=== PATIENT | male | born 1940 | race Caucasian/White ===

== ENCOUNTER 2023-08-18 15:32 | Outpatient (OUT) | payer MEDICARE, BC, SELFPAY ==
--- NOTE | 2023-08-18 15:40 | US_ITS ---
The [address] [address] Patient Name: STONE CLARK MRN: [id number] date: 1940 Sex: M Assigned Patient Location: US Current Patient Location: US Accession/Order Number: [id number] Exam Date: 08/18/2023 16:00 Report Date: 08/18/2023 19:25 At the request of: VICENTA NOLASCO Procedure: US venous doppler LE LT EXAM: US venous doppler LE LT HISTORY: M79.89 COMPARISON: None. TECHNIQUE: Left lower extremity Doppler interrogation performed FINDINGS: Soft tissue swelling is seen. There is no evidence of left lower extremity DVT. Multiple varicose veins are identified. US/US venous doppler LE LT IMPRESSION: No findings of left lower extremity DVT. Soft tissue swelling and varicose veins Electronically authenticated by: STONE OSCAR Date: 08/18/2023 19:25
== END 2023-08-18 15:33 | disposition home or self-care (01) ==
LOC: US 15:36
PROVIDERS: PCP Family Medicine; Visit Provider Family Medicine
DX: M79.89 Other specified soft tissue disorders (principal)
CPT/HCPCS: 93971

== ENCOUNTER 2025-05-12 11:55 | Outpatient (OUT) | payer MEDICARE, BC, SELFPAY ==
--- NOTE | 2025-05-12 | XR_ITS ---
The [address] [address] Patient Name: STONE CLARK MRN: [id number] date: 1940 Sex: M Assigned Patient Location: [facility] Current Patient Location: [facility] Accession/Order Number: [id number] Exam Date: 05/12/2025 12:44 Report Date: 05/12/2025 12:46 At the request of: VICENTA NOLASCO MD Procedure: XR lumbar spine 2-3V LUMBAR SPINE - 2 views COMPARISON: None CLINICAL DATA: Chronic low back pain with recent worsening. Numbness at the legs after sitting lumbar yesterday. AP and lateral views were obtained. There is osteopenia. No acute fractures are identified. There is minor retrolisthesis of L2 on L3 and L3 on L4. There is also minimal anterolisthesis of L4 and L5. There are no acute compression fractures. There is mild multilevel disc space narrowing. Small endplate spurs and lower lumbar facet hypertrophy are seen. There is mild sclerosis at the SI joints. There are partially imaged screws associated with hip prostheses. Left nephrolithiasis is suspected. There is atherosclerotic plaque at the aorta and iliac arteries. XR/XR lumbar spine 2-3V IMPRESSION: OSTEOPENIA AND DEGENERATIVE CHANGES. NO ACUTE BONY FINDINGS. Impression dictated by: Erendira Quinteros M.D. 05/12/2025 12:46 PM Dictation Location: [place] [address] Electronically authenticated by: [id number] Y Date: 05/12/2025 12:46
--- OUTSIDE RECORDS SUMMARY | 2025-05-12 12:00 | XMS_ITS | Encounter Summary ---
Author Organization [facility] Address [address] [facility] [place] [address] Care Team Providers Care Magnet Maker Name Role Phone Roxanna Jaime MD Primary Care Provider [phone] Roxanna Jaime MD Primary Care Provider [phone] Encounter Details Date Type Department Care Team (Late st Contact Info) Description 12/01/2024 Clinisync Result Encounter [facility] External Department Unsolicited Mike Sanchez DO [address] [place] [address] Social History Tobacco Use Types Packs/Day Years Used Date Smoking Tobacco: Former Cigarettes Passive Smoke Exposure: Past Smokeless Tobacco: Never Alcohol Use Standard Drinks/Week Comments Never 0 (1 standard drink = 0.6 oz pur e alcohol) caffiene 3-4/day coffee Sex and Gender Information Value Date Recorded Sex Assigned at Not on file Legal Sex Male 7:14 PM EDT Gender Identity Not on file Sexual Orientation Not on file documented as of this encounter Plan of Treatment Upcoming Encounters Date Type Department Care Team (Late st Contact Info) Description 06/12/2025 8:00 AM EDT Office Visit [facility] [address] [place] [facility] [phone] Mike Sanchez DO [address] [place] [address] documented as of this encounter Procedures Procedure Name Priority Date/Time Associated Diagnosis Comments VASC US LOWER EXTREMITY VENOUS DUPLEX LEFT 12/01/2024 2:24 PM EST documented in this encounter Results * Vascular US lower extremity venous duplex left (12/01/2024 2:24 PM EST) Anatomical Region Laterality Modality Lower Extremities Ultrasound 12/01/2024 2:24 PM EST Narrative 12/01/2024 2:56 PM EST Exam Date/Time: 12/01/2024 14:47 EST Reason for Exam: Z86.718 Report IMPRESSION: NO EVIDENCE OF VENOUS THROMBOSIS INVOLVING VISUALIZED DEEP VEINS OF THE LEFT LEG. LEFT LOWER EXTREMITY VENOUS SONOGRAPHY WITH COLOR FLOW AND DOPPLER. CLINICAL HISTORY: Z86.718 Comparison: 01/14/2023. COMMENT: On the left, the greater saphenous vein, common femoral vein, deep femoral vein, femoral vein, and popliteal vein demonstrate spontaneous phasic venous flow, with augmentation, competence, non-pulsatility, and compressibility every 2 cm. The left posterior tibial and peroneal veins of the deep venous system compress. The contralateral right common femoral vein demonstrates spontaneous phasic venous flow. Ordering Provider: Mike Sanchez FINAL REPORT Dictated: 12/01/2024 2:53 pm Ras Macario MD Signed (Electronic Signature): 12/01/2024 2:53 pm Signed by: Ras Macario MD Transcribed by: KALE Technologist: LAMONT Procedure Note Radiology, Radiologist, - 12/01/2024 Exam Date/Time: 12/01/2024 14:47 EST Reason for Exam: Z86.718 Report IMPRESSION: NO EVIDENCE OF VENOUS THROMBOSIS INVOLVING VISUALIZED DEEPVEINS OF THE LEFT LEG. LEFT LOWER EXTREMITY VENOUS SONOGRAPHY WITH COLOR FLOW AND DOPPLER. CLINICAL HISTORY: Z86.718 Comparison: 01/14/2023. COMMENT: On the left, the greater saphenous vein, common femoral vein,deep femoral vein, femoral vein, and popliteal vein demonstrate spontaneous phasicvenous flow, with augmentation, competence, non-pulsatility, and compressibility every2 cm. The left posterior tibial and peroneal veins of the deep venous systemcompress. The contralateral right common femoral vein demonstrates spontaneous phasicvenous flow. Ordering Provider: Mike Sanchez FINAL REPORT Dictated: 12/01/2024 2:53 pm Ras Macario MD Signed (Electronic Signature): 12/01/2024 2:53 pm Signed by: Ras Macario MD Transcribed by: KALE Technologist: LAMONT us Mike Sanchez DO IMG US PROCEDURES Final Result documented in this encounter Visit Diagnoses Not on filedocumented in this encounter Care Teams Magnet Maker Relationship Specialty Start Date End Date Roxanna Jaime MD PCP - General Family Medicine 08/05/23 03/12/25 Roxanna Jaime MD [address] [place] [phone] PCP - General Family Medicine 03/13/25 documented as of this encounter
--- OUTSIDE RECORDS SUMMARY | 2025-05-12 12:00 | XMS_ITS | Clinical Summary ---
Author Organization [facility] Address [address] [place] [address] Care Team Providers Care Medical Review Coordinator Name Role Phone Roxanna Jaime MD Primary Care Provider [phone] Allergies No known active allergies Medications aspirin, enteric coated (ASPIRIN, ENTERIC COATED) 81 mg EC tablet 1 (one) time each day at the same time. 12/28/2019 Active docusate sodium (COLACE) 100 mg capsule Take 100 mg by mouth. 08/15/2017 Active gabapentin (NEURONTIN) 400 mg capsule TAKE 1 CAPSULE BY MOUTH EVERY MORNING and 2 CAPSULES IN THE EVENING 02/19/2024 Active Naproxen SR (EC-NAPROSYN) 500 mg EC tablet Take 1 tablet by mouth every 12 hours. 02/20/2024 Active pyridoxine, vitamin B6, (VITAMIN B6) 100 mg tablet 1 (one) time each day at the same time. Active TURMERIC ORAL Take by mouth. Active ascorbic acid, vitamin C, (VITAMIN C) 500 mg tablet Take 500 mg by mouth once daily. Active predniSONE (DELTASONE) 10 mg tablet 04/28/2024 Active tamsulosin (FLOMAX) 0.4 mg Take 1 capsule by mouth daily at bedtime. 30 capsule 1 05/18/2024 Active tamsulosin (FLOMAX) 0.4 mg Take 0.4 mg by mouth once daily. 05/18/2024 Active Tadalafil (CIALIS) 10 mg tablet Take 1 tablet by mouth once daily as needed. Take 1-2 hours before sexual activity. 10 tablet 2 12/28/2024 Active Immunizations Immunization Administration Dates Next Due influenza (IIV3) vaccine, tr ivalent (AFLURIA, FLULAVAL, FLUVIRIN, FLUZONE) 09/13/2012 influenza (IIV3) vaccine, tr ivalent, PF (AFLURIA, FLUARIX, FLULAVAL, FLUVIRIN, FLUZONE) 09/04/2014 influenza vaccine, unspecified formulation 09/04,09/13/2012 influenza vaccine, whole virus 08/29/2013,2010 Social History Tobacco Use Types Packs/Day Years Used Date Smoking Tobacco: Former Cigars Q uit: 1974 Smokeless Tobacco: Never Tobacco Cessation:Counseling Given: Not Answered Alcohol Use Standard Drinks/Week Comments Never 0 (1 standard drink = 0.6 oz pur e alcohol) PHQ-2 Answer Date Recorded PHQ-2 score 0 12/28/2024 Area Deprivation Index Answer Date Jasper rded National Score (1-100), lowe r number is lower risk 67 03/17/2024 State Score (1-10), lower number is lower risk 5 03/17/2024 Data from: https://www.neighborhoodatlas.medicine.[facility].edu /. Last address used for calculation [address] 03/17/2024 Sex and Gender Information Value Date Recorded Sex Assigned at Not on file Legal Sex Male 10:13 AM EST Gender Identity Not on file Sexual Orientation Not on file Last Filed Vital Signs Vital Sign Reading Time Taken Comments Blood Pressure 126/88 12/28/2024 9:04 AM EST Pulse 106 12/28/2024 9:04 AM EST Temperature 36.1 C (97 F) 12/28/2024 9:04 AM EST Respiratory Rate 18 12/28/2024 9:04 AM EST Oxygen Saturation 97% 12/28/2024 9:04 AM EST Inhaled Oxygen Concentration - - Weight 116.6 kg (257 lb 0.9 oz) 12/28/2024 9:04 AM EST Height - - Body Mass Index - - Plan of Treatment Upcoming Encounters Date Type Department Care Team (Latest Contact Info) Description 06/29/2025 9:00 AM EDT Office Visit Radiation Oncology [address] [facility] [address] Rogers Chavez MD [address] [place], [place] [address] [address] follow up 6 months 06/29/2025 9:30 AM EDT Visit (SP) Office Hematology/Oncology [address] [place], [place] [address] [address] Charlotte Joy, FIBER TECHNICIAN.HEALTH CARE COACH [address] [place] [address] survivorship Health Maintenance Due Date Last Done Comments Anxiety Screening 1959 Depression Screening 1958 DTaP,Tdap,Td Vaccine (1 - Tdap) 1960 Pneumococcal Vaccine: 50+ (1 of 1 - PCV) 1991 Shingrix Vaccine (1 of 2) 1991 Medicare Annual Wellness Visit 08/30/2006 RSV Vaccine (1 - 1-dose 75+ series) 2016 Covid-19 Vaccine (3 - 2023-2 5 season) 2024 01/19/2021, 12/29/2020 Advance Directive Discussion 11/30/2024 Influenza Vaccine (Season Ended) 2025 09/04/2014, 09/04/2014, 08/29/2013, Additional history exists Diabetes Screening 08/31/2025 08/31/2022, 1 , 08/25/2021, Additional history exists Insurance MEDICARE Care Teams Medical Review Coordinator Relationship Specialty Start Date End Date Roxanna Jaime MD [address] [facility] [place] [address] PCP - General Family Medicine 03/22/24
--- OUTSIDE RECORDS SUMMARY | 2025-05-12 12:00 | XMS_ITS | Encounter Summary ---
Author Organization [facility] Address [address] [facility] [place] [address] Care Team Providers Care Fur Blower Name Role Phone Roxanna Jaime MD Primary Care Provider [phone] Roxanna Jaime MD Primary Care Provider [phone] Encounter Details Date Type Department Care Team (Late Contact Info) Description 01/14/2024 Abstract [facility] [address] [place] [facility] [place] [address] Mike Sanchez DO [address] [place] [address] Social History Tobacco Use Types Packs/Day Years [...] 06/12/2025 8:00 AM EDT Office Visit [facility] [address] [place] [facility] [place] [address] Mike Sanchez DO [address] [facility] [place] [id number] documented as of this encounter Visit Diagnoses Not on filedocumented in this encounter Care Teams Fur Blower Relationship Specialty Start Date End Date Roxanna Jaime MD PCP - General Family Medicine 08/05/23 03/12/25 Roxanna Jaime MD [address] [place] [phone] PCP - General Family Medicine 03/13/25 documented as of this encounter
--- OUTSIDE RECORDS SUMMARY | 2025-05-12 12:00 | XMS_ITS | Clinical Summary ---
Author Organization [facility] Address [address] [place] [address] Care Team Providers Care Supervisor Green End Department Name Role Phone House DO May Charles P Primary Care Provider + Allergies No known active allergies Medications gabapentin (NEURONTIN) 400 MG capsule Take 400 mg by mouth 2 times daily Active naproxen (NAPROSYN) 500 MG tablet Take 500 mg by mouth 2 times daily (with meals) Active aspirin 81 MG tablet Take 81 mg by mouth 2 times daily Active docusate sodium (COLACE, DULCOLAX) 100 MG CAPS Take 100 mg by mouth 2 times daily 60 capsule 08/15/2017 Active Active Problems Problem Noted Date Diagnosed Date 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 Deep vein thrombosis (DVT) of left lower extremi ty 08/06/2017 Overview (08/06/2017): 2009 after long motorcycle trip / trx with Coumadin Kidney stones 08/06/2017 Family History Medical History Relation Name Comments Cancer Brother luekemia Diabetes Brother High Blood Pressure Brother Other Brother pacemaker Diabetes Father Cancer Mother spine Other Mother AAA Relation Name Status Comments Brother Alive Father Mother Social History Tobacco Use Types Packs/Day Years Used Date Smoking Tobacco: Former Cigars Q uit: 08/06/1985 Smokeless Tobacco: Never Alcohol Use Standard Drinks/Week Comments No 0 (1 standard drink = 0.6 oz pur e alcohol) Sex and Gender Information Value Date Recorded Sex Assigned at Not on file Legal Sex Male 11:13 PM EST Gender Identity Not on file Sexual Orientation Not on file Last Filed Vital Signs Vital Sign Reading Time Taken Comments Blood Pressure 136/47 09/20/2017 7:07 AM EDT Pulse 83 09/20/2017 7:07 AM EDT Temperature 37.1 C (98.8 F) 09/20/2017 7:07 AM EDT Respiratory Rate 18 09/20/2017 7:07 AM EDT Oxygen Saturation 95% 09/20/2017 7:07 AM EDT Inhaled Oxygen Concentration - - Weight 110.9 kg (244 lb 9.6 oz) 09/10/2017 8:18 AM EDT Height 182.9 cm (6') 09/10/2017 8:18 AM EDT Body Mass Index 33.17 09/10/2017 8:18 AM EDT Plan of Treatment Not on file Medical Devices Implanted Type Area Rubber Process Hand Device Identifier Shelf Expiration Date Model / Serial / Lot Cement Full Dose Simplex Hv Implanted:Qty : 2 on 08/14/2017 by Milton Short MD at [facility] Fastener SRAVANI: ORTHOPAEDICS-PM M 02/27/2019 [id number] / / [id number] Cement Full Dose Simplex Hv - [id number] Implanted:Qty : 2 on 09/18/2017 by Milton Short MD at [facility] Fastener Left: Knee SRAV[employer]: ORTHOPAEDICS-PM M 02/27/2019 [id number] / [id number] / [id number] Impl Knee Psn Tib Stm 5deg Szg R Implanted:Qty : 1 on 08/14/2017 by Milton Short MD at [facility] Knee [employer]-PMM [id number] 06/29/2027 [id number] / / [id number] Impl Knee Psn Fem Ps Cmt Ccr Std S29r Implanted:Qty : 1 on 08/14/2017 by Milton Short MD at [facility] Knee [employer]PMM [id number] 02 05/29/2025 [id number] / / [id number] Impl Knee Artic 10mm Rt Implanted:Qty : 1 on 08/14/2017 by Milton Short MD at [facility] Knee [employer]PMM [id number] 10 08/29/2021 [id number] / / [id number] Impl Knee Psn All Poly Pat 38mm Implanted:Qty : 1 on 08/14/2017 by Milton Short MD at [facility] Knee [employer] [id number] 07/30/2025 [id number] / / [id number] Impl Knee Fem Psn Ps Cmt Ccr Std Sz9 L Implanted:Qty : 1 on 09/18/2017 at [facility] Knee [employer] [id number] Impl Knee Artic 10mm Lt - [id number] Implanted:Qty : 1 on 09/18/2017 by Milton Short MD at [facility] Knee Left: Knee [employer] [id number] 10 04/29/2022 [id number] / [id number] / [id number] Impl Knee Psn All Poly Pat 38mm - [id number] Implanted:Qty : 1 on 09/18/2017 by Milton Short MD at [facility] Knee Left: Knee [employer] [id number] 05/29/2025 [id number] / [id number] / [id number] Impl Knee Psn Tib Stm 5 Deg Sz Gl - [id number] Implanted:Qty : 1 on 09/18/2017 by Milton Short MD at [facility] Knee Left: Knee [employer] [id number] 05/29/2027 [id number] / [id number] / [id number] Insurance [facility] [place] [address] MEDICARE MEDICARE Advance Directives * Full Code (Latest Code Status on File) Date Activated Date Inactivated Comments 09/18/2017 10:54 AM 09/20/2017 6:56 PM * Full Code Date Activated Date Inactivated Comments 08/14/2017 2:15 PM 08/16/2017 4:46 PM Care Teams Supervisor Green End Department Relationship Specialty Start Date End Date Porfirio Palomo Sr., DO [address] [place] [address] [facility] - General 01/31/14
--- OUTSIDE RECORDS SUMMARY | 2025-05-12 12:00 | XMS_ITS | Encounter Summary ---
Author Organization [facility] Address [address] [facility] [place] [address] Care Team Providers Care Recruiting Intern Name Role Phone Roxanna Jaime MD Primary Care Provider [phone] Roxanna Jaime MD Primary Care Provider [phone] Encounter Details Date Type Department Care Team (Late st Contact Info) Description 12/13/2024 Clinisync Result Encounter [facility] External Department Unsolicited Mike Sanchez DO [address] [place] [place] [address] Social History Tobacco Use Types Packs/Day Years [...] NB ORTHO [address] [place] [phone] Mike Sanchez DO [address] [place] [address] documented as of this encounter Procedures Procedure Name Priority Date/Time Associated Diagnosis Comments XR HIP 1 VIEW RIGHT + PELVIS 12/13/2024 9:08 AM EST documented in this encounter Results * XR HIP 1 VIEW RIGHT + PELVIS (12/13/2024 9:08 AM EST) Anatomical Region Laterality Modality Other 12/13/2024 9:08 AM EST Narrative 12/13/2024 6:41 PM EST Exam Date/Time: 12/13/2024 09:22 EST Reason for Exam: Post Op Report IMPRESSION: NEGATIVE POSTOPERATIVE RIGHT HIP ARTHROPLASTY. REMOTE LEFT HIP ARTHROPLASTY. CLINICAL HISTORY: Post Op COMPARISONS: NONE AVAILABLE FINDINGS: Supine AP film of the pelvis to include both hips and lateral view of the right hip were obtained. Remote bipolar left hip replacement. Interval bipolar right knee replacement. No abnormal lucency bilateral bone prosthetic interfaces. No acute fractures identified. Ordering Provider: Mike Sanchez FINAL REPORT Dictated: 12/13/2024 6:38 pm Ras Macario MD Signed (Electronic Signature): 12/13/2024 6:38 pm Signed by: Ras Macario MD Transcribed by: KALE Technologist: SILVANA, Technical Comments Radiation Dose: Ka,r in mGy = na DAP = na Procedure Note Radiology, Radiologist, MD - 12/13/2024 Exam Date/Time: 12/13/2024 09:22 EST Reason for Exam: Post Op Report IMPRESSION: NEGATIVE POSTOPERATIVE RIGHT HIP ARTHROPLASTY. REMOTE LEFTHIP ARTHROPLASTY. CLINICAL HISTORY: Post Op COMPARISONS: NONE AVAILABLE FINDINGS: Supine AP film of the pelvis to include both hips and lateralview of the right hip were obtained. Remote bipolar left hip replacement. Intervalbipolar right knee replacement. No abnormal lucency bilateral bone prostheticinterfaces. No acute fractures identified. Ordering Provider: Mike Sanchez FINAL REPORT Dictated: 12/13/2024 6:38 pm Ras Macario MD Signed (Electronic Signature): 12/13/2024 6:38 pm Signed by: Ras Macario MD Transcribed by: KALE Technologist: SILVANA, Technical Comments Radiation Dose: Ka,r in mGy = na DAP = na Mike Sanchez DO [facility] Final Result documented in this encounter Visit Diagnoses Not on filedocumented in this encounter Care Teams Recruiting Intern Relationship Specialty Start Date End Date Roxanna Jaime MD PCP - General Family Medicine 08/05/23 03/12/25 Roxanna Jaime MD [address] [place] [phone] PCP - General Family Medicine 03/13/25 documented as of this encounter
--- OUTSIDE RECORDS SUMMARY | 2025-05-12 12:00 | XMS_ITS | Encounter Summary ---
Author Organization [facility] Address [address] [facility] [place] [address] Care Team Providers Care School Boat Driver Name Role Phone Roxanna Jaime MD Primary Care Provider Roxanna Jaime MD Primary Care Provider [phone] Encounter Details Date Type Department Care Team (Late st Contact Info) Description 11/21/2024 Clinisync Result Encounter [facility] External Department Unsolicited Mike Sanchez DO [address] [place] [address] Social History Tobacco Use Types Packs/Day Years [...] NB ORTHO [address] [place] [facility] [place] [phone] Mike Sanchez DO [address] [place] [address] documented as of this encounter Procedures Procedure Name Priority Date/Time Associated Diagnosis Comments CT LOWER EXTREMITY W/O CONTRAST RIGHT 11/21/2024 1:06 PM EST UA WITH CULT RFLX Routine 11/21/2024 12: 47 PM EST [facility] EGFR Routine 11/21/2024 12:47 PM EST [facility] CMP Routine 11/21/2024 12:47 PM EST documented in this encounter Results * CT LOWER EXTREMITY W/O CONTRAST RIGHT (11/21/2024 1:06 PM EST) Anatomical Region Laterality Modality Other 11/21/2024 1:06 PM EST Narrative 11/21/2024 2:12 PM EST Exam Date/Time: 11/21/2024 13:25 EST Reason for Exam: RIGHT HIP OA Report Impression: 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 CT right lower extremity without intravenous contrast medium. History: Right hip osteoarthritis.. Technical factors: CT imaging of the right hip was obtained and formatted as 1 mm contiguous axial images. Sagittal coronal reconstructions were obtained during postprocessing. Additionally, 1 mm contiguous axial images were obtained through the knees. Comparison: None. Findings: Bipolar noncemented left hip replacement. Bilateral knee arthroplasties. Right hip shows narrowing of the right hip joint, greatest medially. Osteophyte formation identified along medial superior and inferior aspects of right humeral head. No fracture, dislocation, bone lesion. AP images left hip shows no fracture. No abnormal lucency the bone prosthetic interface. All CT scans at this facility use dose modulation, iterative reconstruction, and/or weight based dosing when appropriate to reduce radiation dose to as low as reasonably achievable. 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 CT right lower extremity without intravenous contrast medium. History: Right hip osteoarthritis.. Technical factors: CT imaging of the right hip was obtained and formattedas 1 mm contiguous axial images. Sagittal coronal reconstructions were obtainedduring postprocessing. Additionally, 1 mm contiguous axial images were obtainedthrough the knees. Comparison: None. Findings: Bipolar noncemented left hip replacement. Bilateral knee arthroplasties. Right hip shows narrowing of the right hip joint, greatest medially.Osteophyte formation identified along medial superior and inferior aspects of righthumeral head. No fracture, dislocation, bone lesion. AP images left hip shows no fracture. No abnormal lucency the boneprosthetic interface. All CT scans at this facility use dose modulation, iterativereconstruction, and/or weight based dosing when appropriate to reduce radiation dose to as low asreasonably achievable. Report Ordering Provider: Mike Sanchez FINAL REPORT Dictated: 11/21/2024 2:09 pm Ras Macario MD Signed (Electronic Signature): 11/21/2024 2:09 pm Signed by: Ras Macario MD Transcribed by: KALE Technologist: JENNI Mike Sanchez DO [facility] Final Result * [facility] EGFR (11/21/2024 12:47 PM EST) [facility] EGFR 66 >=59 mL/min/1.73 m2 [facility] Blood 11/21/2024 12:4 7 PM EST 11/21/2024 2:08 PM EST Narrative CLIN[facility] - 11/21/2024 2:35 PM EST Original Ordering Provider: DO Mike Sanchez Mike Sanchez DO CLIN[facility] Final Result [facility] * (ABNORMAL) [facility] CMP (11/21/2024 12:47 PM EST) [facility] GLUCOSE:MCNC:PT :SER/PLAS:QN: 82 55 - 199 mg/dL [facility] UREA NITROGEN:MCNC:P T:SER/PLAS:QN: 25(H) 5 - 21 mg/dL [facility] CREATININE:MCNC :PT:SER/PLAS:QN : 1.1 0.5 - 1.3 mg/dL [facility] CALCIUM:MCNC:PT :SER/PLAS:QN: 9.2 8.9 - 11.1 mg/dL [facility] SODIUM:SCNC:PT: SER/PLAS:QN: 139 135 - 145 mmol/L [facility] POTASSIUM:SCNC: PT:SER/PLAS:QN: 4.8 3.5 - 5.3 mmol/L [facility] CHLORIDE:SCNC:P T:SER/PLAS:QN: 106 101 - 111 mmol/L [facility] CARBON DIOXIDE:SCNC:PT :SER/PLAS:QN: 26 21 - 31 mmol/L [facility] ALKALINE PHOSPHATASE:CCN C:PT:SER/PLAS:Q N: 56 21 - 98 Int._Unit/L [facility] BILIRUBIN:MCNC: PT:SER/PLAS:QN: 1.0 0.0 - 1.1 mg/dL [facility] ALBUMIN:MCNC:PT :SER/PLAS:QN: 3.9 3.3 - 5.0 gm/dL [facility] PROTEIN:MCNC:PT :SER/PLAS:QN: 6.6 6.0 - 7.8 gm/dL [facility] ALANINE AMINOTRANSFERAS E:CCNC:PT:SER/P LAS:QN:NO ADDITION OF P-5'-P 21 6 - 46 Int._Unit/L [facility] ASPARTATE AMINOTRANSFERAS E:CCNC:PT:SER/P LAS:QN: 25 5 - 43 Int._Unit/L [facility] UREA NITROGEN/CREATI NINE:MRTO:PT:SE R/PLAS:QN: 23(H) 10 - 20 No Units [facility] ANION GAP:SCNC:PT:SER /PLAS:QN: 12 6 - 16 mEq/L [facility] GLOBULIN:MCNC:P T:SER:QN:CALCUL ATED 2.7 1.4 - 4.0 gm/dL [facility] ALBUMIN/GLOBULI N:MCRTO:PT:SER: QN: 1.4 1.1 - 2.2 [facility] Blood 11/21/2024 12:4 7 PM EST 11/21/2024 2:08 PM EST Narrative CLINISYNC - 11/21/2024 2:35 PM EST Original Ordering Provider: DO Mike Sanchez Mike Sanchez DO CLIN[facility] Final Result [facility] * UA WITH CULT RFLX (11/21/2024 12:47 PM EST) Pathologist [facility] CLASS:TYPE:PT: URINE COLLECTION METHOD:NOM:* Clean Catch [facility] COLOR:TYPE:PT: URINE:NOM:AUTO Yellow Yellow [facility] Comment:Microscopic readings are only performed on those samples that meet specific criteria set forth by [facility]. [facility] CLARITY:TYPE:P T:URINE:NOM: Clear Clear [facility] SPECIFIC GRAVITY:RDEN:P T:URINE:QN:EMERSON T STRIP 1.023 1.005 - 1.030 [facility] PH:LSCNC:PT:UR INE:QN:TEST STRIP 6.5 5.0 - 9.0 [facility] PROTEIN:PRTHR: PT:URINE:ORD:T EST STRIP Negative Negative mg/dL FT GLUCOSE:PRTHR: PT:URINE:ORD:T EST STRIP Negative Negative mg/dL FT KETONES:PRTHR: PT:URINE:ORD:T EST STRIP.AUTOMATE D Negative Negative mg/dL FT BILIRUBIN:PRTH R:PT:URINE:ORD :TEST STRIP.AUTOMATE D Negative Negative mg/dL [facility] HEMOGLOBIN:MCN C:PT:URINE:SHERMAN IQN:TEST STRIP.AUTOMATE D Negative Negative mg/dL FT NITRITE:PRTHR: PT:URINE:ORD:T EST STRIP.AUTOMATE D Negative Negative mg/dL [facility] UROBILINOGEN:M CNC:PT:URINE:S EMIQN:TEST STRIP Negative Negative mg/dL FT LEUKOCYTE ESTERASE:PRTHR :PT:URINE:ORD: TEST STRIP.AUTOMATE D Negative Negative CD:[id number] [facility] Urine 11/21/2024 12:4 7 PM EST 11/21/2024 2:13 PM EST Narrative CLIN[facility]YNC - 11/21/2024 2:32 PM EST Original Ordering Provider: DO Mike Sanchez us Mike Sanchez DO LAB BLOOD ORDERABLES Final Resu lt KATIE [facility] documented in this encounter Visit Diagnoses Not on filedocumented in this encounter Care Teams School Boat Driver Relationship Specialty Start Date End Date Roxanna Jaime MD PCP - General Family Medicine 08/05/23 03/12/25 Roxanna Jaime MD [address] [place] [phone] PCP - General Family Medicine 03/13/25 documented as of this encounter
--- OUTSIDE RECORDS SUMMARY | 2025-05-12 12:00 | XMS_ITS | Encounter Summary ---
Author Organization [facility] Address [address] [facility] [place] [address] Care Team Providers Care Sourcer Name Role Phone Roxanna Jaime MD Primary Care Provider [phone] Roxanna Jaime MD Primary Care Provider [phone] Encounter Details Date Type Department Care Team (Late Contact Info) Description 07/01/2023 Abstract [facility] [address] [place] [facility] [place] [address] Mike Sanchez DO [address] [place] [address] Social History Tobacco Use Types Packs/Day Years [...] [address] [place] [facility] [place] [address] Mike Sanchez DO [address] [place] [phone] documented as of this encounter Visit Diagnoses Not on filedocumented in this encounter Care Teams Sourcer Relationship Specialty Start Date End Date Roxanna Jaime MD PCP - General Family Medicine 08/05/23 03/12/25 Roxanna Jaime MD [address] [place] [phone] PCP - General Family Medicine 03/13/25 documented as of this encounter
--- OUTSIDE RECORDS SUMMARY | 2025-05-12 12:00 | XMS_ITS | Encounter Summary ---
Author Organization [facility] Address [address] [facility] [place] [address] Care Team Providers Care Stockbroking Dealer Name Role Phone Roxanna Jaime MD Primary Care Provider [phone] Roxanna Jaime MD Primary Care Provider [phone] Encounter Details Date Type Department Care Team (Late st Contact Info) Description 04/29/2024 Clinisync Result Encounter [facility] External Department Unsolicited Imtiaz Chu PA [address] [place] [address] Social History Tobacco Use Types Packs/Day Years [...] NB ORTHO [address] [place] [phone] Mike Sanchez DO [address] [place] [address] documented as of this encounter Procedures Procedure Name Priority Date/Time Associated Diagnosis Comments US LE VENOUS DUPLEX LEFT 04/29/2024 2:12 PM EDT documented in this encounter Results * US LE VENOUS DUPLEX LEFT (04/29/2024 2:12 PM EDT) Anatomical Region Laterality Modality Other 04/29/2024 2:12 PM EDT Narrative 04/29/2024 4:23 PM EDT Exam Date/Time: 04/29/2024 14:34 EDT Reason for Exam: M79.662 Pain in left lower leg Report IMPRESSION: NO SONOGRAPHIC EVIDENCE OF DEEP VENOUS THROMBOSIS OF THE LEFT LOWER EXTREMITY. THROMBUS IS AGAIN IDENTIFIED WITHIN THE GREATER SAPHENOUS VEIN. TECHNIQUE: LEFT LOWER EXTREMITY VENOUS DUPLEX EXAM WAS PERFORMED CLINICAL HISTORY: M79.662 Pain in left lower leg The common femoral, femoral, deep femoral, popliteal and calf veins were evaluated for deep venous thrombosis. The veins were evaluated with color Doppler imaging, compression and augmentation if possible. No sonographic evidence of deep venous thrombosis. Thrombus is again identified within the greater saphenous vein. Ordering Provider: Imtiaz Chu FINAL REPORT Dictated: 04/29/2024 4:20 pm Milton Harvey DO Signed (Electronic Signature): 04/29/2024 4:20 pm Signed by: Milton Harvey DO Transcribed by: KALE Technologist: LAMONT Procedure Note Radiology, Radiologist, - 04/29/2024 Exam Date/Time: 04/29/2024 14:34 EDT Reason for Exam: M79.662 Pain in left lower leg Report IMPRESSION: NO SONOGRAPHIC EVIDENCE OF DEEP VENOUS THROMBOSIS OF THE LEFT LOWEREXTREMITY. THROMBUS IS AGAIN IDENTIFIED WITHIN THE GREATER SAPHENOUS VEIN. TECHNIQUE: LEFT LOWER EXTREMITY VENOUS DUPLEX EXAM WAS PERFORMED CLINICAL HISTORY: M79.662 Pain in left lower leg The common femoral, femoral, deep femoral, popliteal and calf veins wereevaluated for deep venous thrombosis. The veins were evaluated with color Dopplerimaging, compression and augmentation if possible. No sonographic evidence of deepvenous thrombosis. Thrombus is again identified within the greater saphenousvein. Ordering Provider: Imtiaz Chu FINAL REPORT Dictated: 04/29/2024 4:20 pm Milton Harvey DO Signed (Electronic Signature): 04/29/2024 4:20 pm Signed by: Milton Harvey DO Transcribed by: KALE Technologist: LAMONT Imtiaz [facility]ST [facility] Final Result documented in this encounter Visit Diagnoses Not on filedocumented in this encounter Care Teams Stockbroking Dealer Relationship Specialty Start Date End Date Roxanna Jaime MD PCP - General Family Medicine 08/05/23 03/12/25 Roxanna Jaime MD [address] [place] [phone] PCP - General Family Medicine 03/13/25 documented as of this encounter
--- OUTSIDE RECORDS SUMMARY | 2025-05-12 12:00 | XMS_ITS | Encounter Summary ---
Author Organization [facility] Address [address] [facility] [place] [address] Care Team Providers Care Electro Mechanical Engineer Name Role Phone Roxanna Jaime MD Primary Care Provider [phone] Roxanna Jaime MD Primary Care Provider [phone] Encounter Details Date Type Department Care Team (Late Contact Info) Description 12/13/2024 Abstract [facility] [address] [place] [facility] [place] [address] Mike Sanchez DO [address] [place] [address] Social History Tobacco Use Types Packs/Day Years [...] VANDANA ORTHO [address] [place] [facility] [place] [address] Mike Sanchez DO [address] [place] [facility] [place], [place] [phone] documented as of this encounter Visit Diagnoses Not on filedocumented in this encounter Care Teams Electro Mechanical Engineer Relationship Specialty Start Date End Date Roxanna Jaime MD PCP - General Family Medicine 08/05/23 03/12/25 Roxanna Jaime MD [address] [place] [phone] PCP - General Family Medicine 03/13/25 documented as of this encounter
--- OUTSIDE RECORDS SUMMARY | 2025-05-12 12:00 | XMS_ITS | Clinical Summary ---
Author Organization [facility] Address [address] [facility] [place] [address] Care Team Providers Care Proof Technician Name Role Phone Roxanna Jaime MD Primary Care Provider [phone] Allergies No known active allergies Medications aspirin 81 MG EC tablet 1 (one) time each day at the same time Active fluocinonide (Lidex) 0.05 % cream 12/29/2022 Active Linzess 145 MCG capsule Take 145 mcg by mouth Daily 11/26/2022 Active Pyridoxine HCl (Vitamin B6) 100 MG tablet 1 (one) time each day at the same time Active ascorbic acid (Vitamin C) 500 MG tablet Take 500 mg by mouth in the morning. Active TURMERIC PO Take by mouth Active fluorouracil (Efudex) 5 % cream 05/03/2024 Active tamsulosin (Flomax) 0.4 MG 24 hr capsule Take 0.4 mg by mouth at bedtime 05/18/2024 Active naproxen (Naprosyn) 500 MG tablet Take 500 mg by mouth in the morning and 500 mg before bedtime. 06/06/2024 Active cholecalciferol (Vitamin D-3) 25 MCG (1000 UT) capsule Take 1,000 Units by mouth Daily Active tadalafil (Cialis) 10 MG tablet Take 10 mg by mouth 12/28/2024 Active gabapentin (Neurontin) 400 MG capsuleIndicati ons:Idiopathic peripheral neuropathy 1 po bid and 2 po q hs 120 capsule 2 03/27/2025 Active Active Problems No known active problems Encounters Date Type Department Care Team Description 04/27/2025 Telephone [facility] [address] [place] [address] Mike Sanchez DO Pain Med Request 04/25/2025 Telephone ROSALIND BARRERAUE [address] [place] [phone] Italia Ross NP 03/27/2025 Telephone ROSALIND BRICELYN [address] [place] [phone] Italia Ross NP Med Refill 03/13/2025 8:00 AM EDT Ancillary Procedure [facility] [address] [place] [address] 03/13/2025 8:00 AM EDT Office Visit [facility] [address] [place] [facility] [place] [address] Mike Sanchez DO Presence of artificial hip joint, right (Primary Dx) 03/13/2025 Travel from Last 3 Months Family History Medical History Relation Name Comments No Known Problems Brother Diabetes Father No Known Problems Father's Brother No Known Problems Father's Sister No Known Problems Maternal Grandfather No Known Problems Maternal Grandmother Cancer Mother Hypertension Mother No Known Problems Mother's Brother No Known Problems Mother's Sister No Known Problems Paternal Grandfather No Known Problems Paternal Grandmother No Known Problems Sister Relation Name Status Comments Brother Father Father's Brother Father's Sister Maternal Grandfather Maternal Grandmother Mother Mother's Brother Mother's Sister Paternal Grandfather Paternal Grandmother Sister Social History Tobacco Use Types Packs/Day Years Used Date Smoking Tobacco: Former Cigarettes Passive Smoke Exposure: Past Smokeless Tobacco: Never Tobacco Cessation:Counseling Given: Not [...] Sign Reading Time Taken Comments Blood Pressure 150/82 01/31/2025 8:47 AM EST Pulse 104 01/31/2025 8:47 AM EST Temperature 36.8 C (98.3 F) 04/28/2024 12:57 PM EDT Respiratory Rate - - Oxygen Saturation 92% 01/31/2025 8:47 AM EST Inhaled Oxygen Concentration - - Weight 112 kg (248 lb) 03/13/2025 8:01 AM EDT Height 182.9 cm (6') 03/13/2025 8:01 AM EDT Body Mass Index 33.63 03/13/2025 8:01 AM EDT Plan of Treatment Upcoming Encounters Date Type Department Care Team (Late st Contact Info) Description 06/12/2025 8:00 AM EDT Office Visit [facility] [address] [place] [phone] Mike Sanchez DO [address] [place] [address] Health Maintenance Due Date Last Done Comments Pneumococcal Vaccine: 65+ Ye ars (1 of 1 - PCV) 1991 Influenza Vaccine (Season Ended) 2025 09/04/2014, 08/29/2013, 09/13/2012, Additional history exists Procedures Procedure Name Priority Date/Time Associated Diagnosis Comments XR HIP 2 OR 3 VW RIGHT Routine 03/13/2025 7:47 AM EDT Presence of artificial hip joint, right from Last 3 Months Results * XR hip right 2 or 3 views (03/13/2025 7:47 AM EDT) Anatomical Region Laterality Modality Lower Extremities, Hip Right Radiograp hic Imaging Narrative 03/13/2025 4:05 PM EDT Imaging Result: X-rays done here today AP pelvis, right hip total of three views with permanent images are saved to the record and does show what appears to be well-fixed, well-aligned total hip arthroplasty bilaterally. No limb length inequality. No evidence of fracture, loosening or catastrophic wear. us Mike Sanchez DO IMG XR PROCEDURES Final Result from Last 3 Months Insurance [facility] MEDIC[facility] Care Teams Proof Technician Relationship Specialty Start Date End Date Roxanna Jaime MD [address] [place] [phone] PCP - General Family Medicine 03/13/25
--- OUTSIDE RECORDS SUMMARY | 2025-05-12 12:00 | XMS_ITS | Encounter Summary ---
Author Organization [facility] Address [address] [facility] [place] [address] Care Team Providers Care Straightener Hand Name Role Phone Roxanna Jaime MD Primary Care Provider [phone] Roxanna Jaime MD Primary Care Provider [phone] Encounter Details Date Type Department Care Team (Late st Contact Info) Description 11/16/2024 Orders Only ROSALIND SHANITA [address] [place] [phone] Mike Sanchez DO [address] [place] [address] Social History Tobacco Use Types Packs/Day Years [...] NB ORTHO [address] [place] [phone] Mike Sanchez DO [address] [place] [address] documented as of this encounter Procedures Procedure Name Priority Date/Time Associated Diagnosis Comments EMG AND NERVE CONDUCTION STUDY Routine 01/18/2024 12:17 PM EST documented in this encounter Results * EMG AND NERVE CONDUCTION STUDY (01/18/2024 12:17 PM EST) us Mike Sanchez DO NEUROLOGY ORDERABLES Final Resu lt documented in this encounter Visit Diagnoses Not on filedocumented in this encounter Care Teams Straightener Hand Relationship Specialty Start Date End Date Roxanna Jaime MD PCP - General Family Medicine 08/05/23 03/12/25 Roxanna Jaime MD [address] [place] [phone] PCP - General Family Medicine 03/13/25 documented as of this encounter
== END 2025-05-12 11:56 | disposition home or self-care (01) ==
LOC: RAD 11:59
PROVIDERS: PCP Family Medicine; Visit Provider Family Medicine
DX: M54.16 Radiculopathy, lumbar region (principal); M85.80 Other specified disorders of bone density and structure, unspecified site; M51.369 Other intervertebral disc degeneration, lumbar region without mention of lumbar back pain or lower extremity pain
CPT/HCPCS: 72100

== ENCOUNTER 2025-06-06 08:14 | Outpatient (OUT) | payer MEDICARE, BC, SELFPAY ==
--- NOTE | 2025-06-06 08:17 | MR_ITS ---
The [address] [address] Patient Name: STONE CLARK MRN: [id number] date: 1940 Sex: M Assigned Patient Location: MRI Current Patient Location: MRI Accession/Order Number: [id number] Exam Date: 06/06/2025 15:20 Report Date: 06/06/2025 15:24 At the request of: VICENTA NOLASCO MD Procedure: MR lumbar spine wo con MR lumbar spine wo con 06/06/2025 9:10 AM SIGNS AND SYMPTOMS: ^Lumbar Back Pain With Radiculopathy PROTOCOL: Multiplanar multisequence MR images of the lumbar spine without IV contrast COMPARISON: None. FINDINGS: There is 5 mm of anterolisthesis of L4 upon L5. Schmorl's node formation is noted in the superior endplates at L3, L4, and L5. There is preservation of vertebral body heights. There is disc desiccation and mild disc height loss at L2-L3, L3-4, and L4-5. The marrow signal is within normal limits. The conus terminates at the superior endplate of the L1 vertebral body level. No epidural or paraspinous fluid collection is appreciated. Simple cysts are noted in the renal cortices requiring no further follow-up. At T12-L1: There is a normal disc, central canal, and neural foramen. At L1-L2: There is a normal disc, central canal, and neural foramen. At L2-L3: There is a broad-based disc bulge with facet hypertrophy and ligamentum flavum thickening contributing to moderate spinal canal stenosis. There is mild right and moderate left neural foraminal narrowing. At L3-L4: There is a circumferential disc bulge with facet hypertrophy and ligamentum flavum thickening. There is severe spinal canal narrowing. The nerve roots of the cauda equina are redundant below this level consistent with mass effect on the cauda equina. There is moderate bilateral neural foraminal narrowing. At L4-L5: There is a broad-based disc bulge with facet hypertrophy and ligament flavum thickening contributing to severe spinal canal narrowing and mass effect on the nerve roots of the cauda equina. There is mild bilateral neural foraminal stenosis. At L5-S1: There is facet hypertrophy with ligamentum flavum thickening contributing to moderate spinal canal narrowing. There is mild bilateral neural foraminal narrowing. MR/MR lumbar spine wo con IMPRESSION: At L3-L4: There is a circumferential disc bulge with facet hypertrophy and ligamentum flavum thickening. There is severe spinal canal narrowing. The nerve roots of the cauda equina are redundant below this level consistent with mass effect on the cauda equina. There is moderate bilateral neural foraminal narrowing. At L4-L5: There is a broad-based disc bulge with facet hypertrophy and ligament flavum thickening contributing to severe spinal canal narrowing and mass effect on the nerve roots of the cauda equina. There is mild bilateral neural foraminal stenosis. Impression dictated by: Davis Babb M.D. 06/06/2025 3:24 PM Dictation Location: [place] [address] Electronically authenticated by: [id number] Y Date: 06/06/2025 15:24
== END 2025-06-06 08:15 | disposition home or self-care (01) ==
LOC: MRI 08:15
PROVIDERS: PCP Family Medicine; Visit Provider Family Medicine
DX: M54.16 Radiculopathy, lumbar region (principal); M51.369 Other intervertebral disc degeneration, lumbar region without mention of lumbar back pain or lower extremity pain
CPT/HCPCS: 72148